=== PATIENT | male | born 1975 | race Caucasian/White ===

== ENCOUNTER 2023-12-26 15:40 | Inpatient (IN) | payer BC ==
[~2023-12-26] VITALS: Ht 182.9 cm; Wt 129.4 kg
[2024-01-27] MEDS ORDERED: Celecoxib 200 MG CAP PO SCH (11:30)
[2024-01-27] MEDS ORDERED: Acetaminophen 500 MG TAB PO SCH (11:30)
[2024-01-27] MEDS ORDERED: Gabapentin 100 MG CAP PO SCH (11:30)
[2024-01-28] VITALS (8 sets, daily range): BP systolic 110–142; BP diastolic 72–88; PULSE 64–83; TEMP 98.1–98.6
[2024-01-28] MEDS ORDERED: LR 1,000 ML IV SCH ×2 (06:00→15:00)
[2024-01-28 08:18] LABS: BASO # 0.1 K/mm3 (0.0-0.2); BASO % 0.9 % (0.0-2.0); EOS # 0.1 K/mm3 (0.0-0.7); EOS % 1.6 % (0.0-4.0); GRAN # 3.4 K/mm3 (1.4-6.5); GRAN % 48.6 % (42.2-75.2); HEMATOCRIT 45.2 % (42.0-52.0); HEMOGLOBIN 15.5 g/dl (13.5-18.0); LYMPH # 2.9 K/mm3 (1.2-3.4); LYMPH % 40.7 % (20.0-51.0); MEAN CELL VOLUME 86 fl (80.0-100.0); MEAN CORPUSCULAR HEMOGLOBIN 29 pg (27-31); MEAN CORPUSCULAR HGB CONC 34 g/dl (33.0-37.0); MONO # 0.5 K/mm3 (0.1-0.6); MONO % 7.5 % (1.7-9.3); PLATELET COUNT 206 K/mm3 (130-400); RED BLOOD COUNT 5.28 M/mm3 (4.20-5.60); REDCELL DISTRIBUTION WIDTH-CV 12.4 % (11.5-14.5)
[2024-01-28] MEDS ORDERED: metroNIDAZOLE 100 ML IV SCH (08:30)
[2024-01-28] MEDS ORDERED: CRESTOR40 MG PO (08:50)
[2024-01-28] MEDS ORDERED: ASPIRIN E.C. 8181 MG PO (08:50)
[2024-01-28 08:51] LABS: ALBUMIN 4.2 g/dL (3.5-5.0); BILIRUBIN,TOTAL 0.5 mg/dL (0.2-1.2); CALCIUM 9.4 mg/dL (8.4-10.2); CREATININE, serum 0.8 mg/dL (0.72-1.25); POTASSIUM 4.4 mEq/L (3.5-4.5); TOTAL PROTEIN 7.2 g/dl (6.2-8.1)
[2024-01-28] MEDS ORDERED: NORVASC2.5 MG PO (08:51)
[2024-01-28] MEDS ORDERED: FARXIGA10 PO (08:51)
[2024-01-28] MEDS ORDERED: GLUCOPHAGE1000 MG PO (08:51)
[2024-01-28] MEDS ORDERED: PLAVIX 75MG TAB75 MG PO (08:52)
[2024-01-28] MEDS ORDERED: NITROSTAT0.4 MG/TAB SL (08:53)
[2024-01-28] MEDS ORDERED: TOPROL XL 50MG50 MG PO (08:53)
[2024-01-28] MEDS ORDERED: MULTIPLE VITAMI1 CAP PO (08:54)
[2024-01-28] MEDS ORDERED: TRICOR 48MG48 MG PO (08:54)
[2024-01-28] MEDS ORDERED: fentaNYL 50 MCG/ML 2 ML VIAL ONE ×2 (09:15→11:02)
[2024-01-28] MEDS ORDERED: Midazolam 2 MG/2 ML VIAL ONE (09:15)
[2024-01-28] MEDS ORDERED: NS 100 ML IV ONE ×2 (09:17→09:18)
[2024-01-28] MEDS ORDERED: Rocuronium 50 MG/5 ML Multi-Dose VIAL ONE ×3 (09:17→11:27)
[2024-01-28] MEDS ORDERED: Lidocaine PF 2% (20 MG/ML) 5 ML VIAL ONE ×2 (09:17→10:46)
[2024-01-28] MEDS ORDERED: Phenylephrine 10 MG/ML VIAL ONE (09:17)
[2024-01-28] MEDS ORDERED: NS 20 ML IV ONE (09:17)
[2024-01-28] MEDS ORDERED: Ondansetron 4 MG/2 ML VIAL IV PRN ×2 (09:30→15:00)
[2024-01-28] MEDS ORDERED: fentaNYL 50 MCG/ML 1 ML SYRINGE/VIAL [PACU/SDC ONLY] IV PRN (09:30)
[2024-01-28] MEDS ORDERED: Scopolamine 1 MG Delivered 3-Day PATCH TD SCH (09:30)
[2024-01-28] MEDS ORDERED: HYDROmorphone 1 MG/1 ML SYRINGE [PACU/SDC ONLY] IV PRN (09:30)
[2024-01-28] MEDS ORDERED: hydrALAZINE 20 MG/ML 1 ML VIAL IV PRN (09:30)
[2024-01-28] MEDS ORDERED: Ketorolac 30 MG/ML VIAL ONE (10:16)
[2024-01-28] MEDS ORDERED: Ondansetron 4 MG/2 ML VIAL ONE (10:16)
[2024-01-28] MEDS ORDERED: NS 10 ML IV ONE (10:16)
[2024-01-28] MEDS ORDERED: NS 250 ML IV ONE ×2 (10:38)
[2024-01-28] MEDS ORDERED: NS 0 ML IV ONE (10:38)
[2024-01-28] MEDS ORDERED: HYDROmorphone 2 MG/1 ML VIAL ONE (11:44)
[2024-01-28] MEDS ORDERED: Indocyanine Green 25 MG KIT IV ONE (12:44)
[2024-01-28] MEDS ORDERED: Topical Skin Adhesive 1 EACH (1 ML) TOP ONE (14:03)
[2024-01-28] MEDS ORDERED: oxyCODONE 5 MG TAB PO PRN (15:00)
[2024-01-28] MEDS ORDERED: HYDROmorphone 0.5 MG/0.5 ML SYRINGE IV PRN (15:00)
[2024-01-28] MEDS ORDERED: Naloxone 0.4 MG/ML VIAL IV PRN (15:00)
[2024-01-28] MEDS ORDERED: Acetaminophen 500 MG TAB PO SCH (16:00)
--- NOTE | 2024-01-28 16:15 | NUR ---
PATIENT ARRIVED TO FLOOR FROM PACU AT 1615. VSS. PATIENT AWAKE IN BED W/ AT BEDSIDE. PATIENT REPORTING PAIN ABD, PT STATES " MORE OF A SORENESS OPPOSED TO PAIN". PATIET HAS NO OTHER NEEDS AT THIS TIME. CALL LIGHT IN REACH
[2024-01-28] MEDS ORDERED: ceFAZolin 2 G in Water For Injection,Sterile 20 ML IV SCH (19:00)
--- NOTE | 2024-01-28 20:00 | NUR ---
Assessment complete. A&Ox4. Denies pain/nausea/shortness of breath. Has been up ambulating in the hallway. Tolerating clear liquids. VS stable. Left hand IV with LR@75ml/hr infusing without difficulty. Will INT when current bag infuses. Lap sites x4-surgical glue-edges well approximated. Low transverse x1-surgical glue-edges well approximated. Plan of care discussed for this shift to include meds/pain control/calling for questions/concerns. Verbalizes understanding. Call light in reach. Will monitor.
[2024-01-28] MEDS ORDERED: metFORMIN 500 MG TAB PO SCH (21:00)
[2024-01-28] MEDS ORDERED: Atorvastatin 80 MG TAB PO SCH (21:00)
[2024-01-28] MEDS ORDERED: Rosuvastatin 40 MG **** subs to Atorvastatin 80 MG PO SCH (21:00)
[2024-01-28] MEDS ORDERED: Celecoxib 200 MG CAP PO SCH (21:00)
--- NOTE | 2024-01-28 21:50 | NUR ---
C/O pain to lower abdomen described as constant ache-rating pain 6/10 on pain scale. Oxycodone given per dr order. Will monitor.
[2024-01-29] VITALS (13 sets, daily range): BP systolic 126–153; BP diastolic 71–88; PULSE 62–92; TEMP 97.6–98.3
--- NOTE | 2024-01-29 | NUR ---
Patient called stating pain is 5/10 to lower abdomen described as constant ache. To early for oxycodone-dilaudid given per dr order. Will monitor.
--- NOTE | 2024-01-29 06:28 | NUR ---
Patient had an uneventful night. Received oxycodone for pain with good results. Did need one dose of dilaudid for breakthrough pain. Voiding without difficulty. Ambulated several times well. Has a small liquid stool. Tolerating PO. Denies current questions/concerns. Call light in reach. WIll monitor.
[2024-01-29 06:34] LABS: BASO % 0.2 % (0.0-2.0); EOS % 0.1 % (0.0-4.0); GRAN # 10.4 K/mm3 (1.4-6.5); GRAN % 78.6 % (42.2-75.2); HEMATOCRIT 41.1 % (42.0-52.0); HEMOGLOBIN 13.9 g/dl (13.5-18.0); LYMPH # 1.9 K/mm3 (1.2-3.4); LYMPH % 14.3 % (20.0-51.0); MEAN CELL VOLUME 86 fl (80.0-100.0); MEAN CORPUSCULAR HEMOGLOBIN 29 pg (27-31); MEAN CORPUSCULAR HGB CONC 34 g/dl (33.0-37.0); MEAN PLATELET VOLUME 10.2 fl (7.4-10.4); MONO # 0.8 K/mm3 (0.1-0.6); MONO % 6.3 % (1.7-9.3); PLATELET COUNT 218 K/mm3 (130-400); RED BLOOD COUNT 4.78 M/mm3 (4.20-5.60); REDCELL DISTRIBUTION WIDTH-CV 12.3 % (11.5-14.5)
[2024-01-29 06:59] LABS: CREATININE, serum 0.87 mg/dL (0.72-1.25); MAGNESIUM 1.7 mg/dL (1.6-2.6); PHOSPHOROUS 3.6 mg/dL (2.3-4.7); POTASSIUM 4.6 mEq/L (3.5-4.5)
[2024-01-29] MEDS ORDERED: FENOFIBRATE PO SCH (09:00)
[2024-01-29] MEDS ORDERED: Clopidogrel 75 MG TAB PO SCH (09:00)
[2024-01-29] MEDS ORDERED: Dapagliflozin 10 MG **** subs to Empagliflozin 10 MG PO SCH (09:00)
[2024-01-29] MEDS ORDERED: Fenofibrate 54 MG TABLET PO SCH (09:00)
[2024-01-29] MEDS ORDERED: amLODIPine 5 MG TAB PO SCH (09:00)
[2024-01-29] MEDS ORDERED: Atorvastatin 80 MG TAB PO SCH (09:00)
[2024-01-29] MEDS ORDERED: Multivitamin TAB PO SCH (09:00)
[2024-01-29] MEDS ORDERED: Empagliflozin 10 MG TAB PO SCH (09:00)
--- NOTE | 2024-01-29 10:51 | NUR ---
SHIFT ASSESSMENT COMPLETE. VSS. PATIENT UP WALKING THE HALLS OFTEN TODAY. DIET ADVANCED TO FULL LIQUIDS AND PATIENT TOLERATING WELL. PATIENT STATED PAIN THIS AM AT 5/10 IN ABD DECRIBES IT MORE MUSCLES BEING SORE OR REALLY TIGHT. PAIN MEDS GIVEN ORDERED W/ ALL MORNING MEDS. PATIENT HAS NO OTHER REQUEST AT THIS TIME. CALL LIGHT IN REACH.
--- NOTE | 2024-01-29 14:40 | NUR ---
Community Living Coach met with patient to discuss discharge planning. Patient lives in [place], [place] with his , Janae (ph#[phone]) [address] sees Dr. Card for primary care. Patient gets medications from [facility] with no difficulties. Patient is independent with ADLS and is employed at [employer]. Patient does not have DPOA-HC and was not interested in completing one at this time. Discharge Plan: Home
--- NOTE | 2024-01-29 20:00 | NUR ---
Assessment complete. A&Ox3. Denies nausea/shortness of breath. Rating pain 3/10 on pain scale-intermittent cramping-denies need for intervention. Has been ambulating in the hallway. States he feels as if he needs to have a BM but has not yet. +flatus. Hyperactive bowel sounds all four quadrants. Tolerating PO. INTd. INT to right hand DCd per request due to ddiscomfort. INT to left hand flushes well with no s/s of infiltration noted. Plan of care discussed for this shift to include continued ERAS protocol/pain control/calling for questions/concerns. Verbalizes understanding. Call light in reach. Will monitor.
[2024-01-30] VITALS (12 sets, daily range): BP systolic 130–155; BP diastolic 74–94; PULSE 67–100; TEMP 97.6–98.4
--- NOTE | 2024-01-30 03:17 | NUR ---
Patient up ambulating in the hallways. States he has the urge to have a BM and feels as if he is going to "mess himself" but as soon as he sits on toilet unable to go. Has been ambulating off and on this shift. Denies need for pain meds. Provided warm juice cocktail and is going to try to complete cup to see if able to go. Denies any other needs. Call light in reach. Will monitor.
--- NOTE | 2024-01-30 06:31 | NUR ---
Patient had an uneventful night. Ambulated several times in the hallways. Denied pain medications as well as scheduled tylenol. VS remained stable. States he feels as if he needs to have a BM but cant. Bowel sounds are hyperactive. Will monitor.
--- NOTE | 2024-01-30 06:47 | NUR ---
Bedside report given to JOCELYN Tirado.
--- NOTE | 2024-01-30 09:30 | NUR ---
SHIFT ASSESSMENT COMPLETED. VSS. PATIENT REPORTS HAVING A ROUGH NIGHT WITH GAS PAINS AND HAVING A FEELING OF HAVING TO HAVE A BM BUT NOT BEING ABLE. PATIENT REPORTS HE DID NOT SLEEP ALL NIGHT. CONTACTED DR. BABCOCK AND RECEIVED ORDER FOR STOOL SOFTNER SEE EMAR. ALL MORNING MEDS GIVEN ORDERED. PATIENT HAS NO TOHER NEEDS AT THIS TIME. CALL LIGHT IN REACH
[2024-01-30] MEDS ORDERED: Docusate Sodium 100 MG CAP PO SCH (09:41)
[2024-01-30] MEDS ORDERED: Polyethylene Glycol 3350 17 GM PDS PO PRN (09:45)
--- NOTE | 2024-01-30 10:30 | NUR ---
ROUNDED ON PATIENT STATES HE HAD A SMALL BM AND HAS SOME RELIEF BUT STILL FEELS PRESSURE TO HAVE A BM AND SOME CRAMPING. GAVE STOOL SOFTNER WILL REASSES.
--- NOTE | 2024-01-30 13:51 | NUR ---
CHECKED ON PATIENT STATES HE ATE BREAKFAST AND A FEW BITES IN THE CRAMPING STARTED BACK UP. ADVISED PATIENT WILL TRY SOME MIRLAX TO HELP WITH BM AND CHANGE DIET BACK TO FULL LIQUIDS TILL DR. BABCOCK COMES AND ROUNDS. PATIENT AGREED.
[2024-01-30 17:14] LABS: BASO % 0.4 % (0.0-2.0); EOS # 0.1 K/mm3 (0.0-0.7); EOS % 1.1 % (0.0-4.0); GRAN # 4.5 K/mm3 (1.4-6.5); GRAN % 47.9 % (42.2-75.2); HEMATOCRIT 42.6 % (42.0-52.0); HEMOGLOBIN 14.4 g/dl (13.5-18.0); LYMPH # 3.9 K/mm3 (1.2-3.4); LYMPH % 42.2 % (20.0-51.0); MEAN CELL VOLUME 88 fl (80.0-100.0); MEAN CORPUSCULAR HEMOGLOBIN 30 pg (27-31); MEAN CORPUSCULAR HGB CONC 34 g/dl (33.0-37.0); MEAN PLATELET VOLUME 10.2 fl (7.4-10.4); MONO # 0.7 K/mm3 (0.1-0.6); MONO % 7.8 % (1.7-9.3); PLATELET COUNT 195 K/mm3 (130-400); RED BLOOD COUNT 4.86 M/mm3 (4.20-5.60); REDCELL DISTRIBUTION WIDTH-CV 12.8 % (11.5-14.5)
[2024-01-30 17:35] LABS: ALBUMIN 3.9 g/dL (3.5-5.0); BILIRUBIN,TOTAL 0.5 mg/dL (0.2-1.2); CALCIUM 9.2 mg/dL (8.4-10.2); CREATININE, serum 0.73 mg/dL (0.72-1.25); POTASSIUM 3.9 mEq/L (3.5-4.5); TOTAL PROTEIN 6.6 g/dl (6.2-8.1)
[2024-01-31] VITALS (17 sets, daily range): BP systolic 113–144; BP diastolic 80–85; PULSE 71–113; TEMP 97.8–98.6
[2024-01-31] MEDS ORDERED: NS 1,000 ML IV ONE (02:30)
[2024-01-31 02:46] LABS: HEMOGLOBIN 13.2 g/dl (13.5-18.0); MEAN CELL VOLUME 87 fl (80.0-100.0); MEAN CORPUSCULAR HEMOGLOBIN 29 pg (27-31); MEAN CORPUSCULAR HGB CONC 34 g/dl (33.0-37.0); MEAN PLATELET VOLUME 10.3 fl (7.4-10.4); PLATELET COUNT 279 K/mm3 (130-400); RED BLOOD COUNT 4.51 M/mm3 (4.20-5.60); REDCELL DISTRIBUTION WIDTH-CV 12.5 % (11.5-14.5)
[2024-01-31 03:05] LABS: ALBUMIN 3.6 g/dL (3.5-5.0); BILIRUBIN,TOTAL 0.7 mg/dL (0.2-1.2); CALCIUM 8.6 mg/dL (8.4-10.2); CREATININE, serum 0.85 mg/dL (0.72-1.25); POTASSIUM 4.1 mEq/L (3.5-4.5); TOTAL PROTEIN 6.2 g/dl (6.2-8.1)
[2024-01-31] MEDS ORDERED: NS 50 ML IV SCH (03:08)
[2024-01-31] MEDS ORDERED: Iohexol 300 - 100 ML VIAL IV ONE (03:08)
[2024-01-31] MEDS ORDERED: Dextrose 50% Water 25 GM/50 ML SYRINGE IV PRN (03:15)
[2024-01-31] MEDS ORDERED: Dextrose (Glucose) 15 GM (4 x 3.75 GM) Chewable TABLET PACK PO PRN (03:15)
[2024-01-31] MEDS ORDERED: Glucagon 1 MG VIAL IM PRN (03:15)
[2024-01-31 03:46] LABS: LYMPHOCYTE 34 % (20.0-51.0); NEUTROPHILS 55 % (42.0-75.2); PLATELET ESTIMATE NORMAL (NORMAL)
--- NOTE | 2024-01-31 05:15 | NUR ---
ASSESSMENT COMPLETE FOR [facility]ER [employer]. pt COMPLAINED OF BLOODY STOOLS. AROUND 0110HRS. pt LEFT HIS 3RD BLOODY STOOL OF THE NIGHT IN THE TOILET FOR ME TO SEE. THE TOILET HAD A LARGE AMOUNT OF VERY DARK RED BLOODY BOWEL MOVEMENT. pt's VSS, AND AT THE TIME ASYMPTOMATIC. DR. BABCOCK CALLED. AM LABS (CBC; BMP). ORDERED. AROUND 0215HRS, THE AID CAME TO ME STATING THERE WAS BLOOD ALL OVER THE pt's FLOOR AND THAT THE pt's STATED HE HAD FAINTED AND HIT HIS HEAD. I RUSHED INTO pt's ROOM TO WITNESS HIM LEANING OVER TO SINK COUNTER, WITH SEVERAL CLOTS NEXT TO HIM ON THE FLOOR. pt WAS COMPLAINING OF FEELING DIZZY. SHORTLY AFTER I RUSHED IN, THE HOSPITALIST WALKED BY. THE HOSPITALIST, AUTOMATIC WHEEL LINE OPERATOR, AID AND MYSELF HELPED pt INTO A WHEEL CHAIR AND BACK INTO HIS BED. A NS BOLUS WAS ORDERED, STAT LABS AND A HEAD AND ABD CT. pt's Hgb DROPPED A LITTLE (14.4 TO 13.2), HOWEVER, HIS VITAL SIGNS REMAINED STABLE AND HIS CT'S CAME BACK UNREMARKABLE. WILL CONTINUE TO MONITOR. FALL PRECAUTIONS IN PLACE. BED ALARM ON. CALL LIGHT WITHIN REACH.
[2024-01-31 06:51] LABS: BASO % 0.4 % (0.0-2.0); EOS % 0.4 % (0.0-4.0); GRAN # 6.5 K/mm3 (1.4-6.5); GRAN % 64.7 % (42.2-75.2); HEMATOCRIT 37.1 % (42.0-52.0); HEMOGLOBIN 12.5 g/dl (13.5-18.0); LYMPH # 2.6 K/mm3 (1.2-3.4); LYMPH % 25.7 % (20.0-51.0); MEAN CELL VOLUME 87 fl (80.0-100.0); MEAN CORPUSCULAR HEMOGLOBIN 29 pg (27-31); MEAN CORPUSCULAR HGB CONC 34 g/dl (33.0-37.0); MEAN PLATELET VOLUME 10.5 fl (7.4-10.4); MONO # 0.8 K/mm3 (0.1-0.6); MONO % 7.5 % (1.7-9.3); PLATELET COUNT 247 K/mm3 (130-400); RED BLOOD COUNT 4.25 M/mm3 (4.20-5.60); REDCELL DISTRIBUTION WIDTH-CV 12.7 % (11.5-14.5)
[2024-01-31 06:54] LABS: CALCIUM 8.6 mg/dL (8.4-10.2); CREATININE, serum 0.76 mg/dL (0.72-1.25); POTASSIUM 4.4 mEq/L (3.5-4.5)
[2024-01-31 07:42] LABS: HEMATOCRIT 36.6 % (42.0-52.0); HEMOGLOBIN 12.4 g/dl (13.5-18.0)
[2024-01-31] MEDS ORDERED: Insulin Lispro (HumaLOG) SQ SCH (08:00)
[2024-01-31] MEDS ORDERED: LR 1,000 ML IV ONE (11:15)
--- NOTE | 2024-01-31 11:30 | NUR ---
MITA notified this nurse of patient almost having another syncopal episode at the sink. called orders obtained. IVF started, she will be in to see patient.
[2024-01-31] MEDS ORDERED: LR 1,000 ML IV SCH (11:45)
--- NOTE | 2024-01-31 12:01 | NUR ---
Patient resting in bed. Feeling much better after PROFESSOR SCULPTURE assisted with shower. Denies any further Bms this am. Denies nausea unless feeling dizzy. Patient made high fall risk this am and verbalized understanding of not getting up without help due to syncope. He is requesting a normal diet. denies nausea, but denies flatus as well. bowels active. low transverse incision with ecchomosis noted. His at bedside. Bruce cerda
--- NOTE | 2024-01-31 14:00 | NUR ---
notifed of patient again almost syncopal episode. Patient was up to the bathroom and become lightheaded/dizzy/unsteady/diaphoretic. This nurse present for episode. Once back in bed episode resolved. Lab called about unobtained lab order. Tele orders recieved. Urinal given to patient, advised him stay in bed for his safety until this resolves. He does refuse to wear hospital gown, but fall risk signage, yellow socks on and bed alarm has been used. at bedside
[2024-01-31 15:01] LABS: HEMOGLOBIN 11.1 g/dl (13.5-18.0)
[2024-01-31 15:02] LABS: HEMATOCRIT 32.5 % (42.0-52.0)
--- NOTE | 2024-01-31 17:34 | NUR ---
Patient resting in bed. MUSIC JOURNALIST assisted him to stool without syncope. He had a very small bloody stool per report. He reports headache resolved. Dinner ordered. IVF as ordered. Scheduled tylenol. Denies other needs at this time
[2024-02-01] VITALS (11 sets, daily range): BP systolic 120–148; BP diastolic 75–86; PULSE 72–85; TEMP 97.6–98.6
--- NOTE | 2024-02-01 07:00 | NUR ---
awake resting in bed watching TV, bedside shift report received from JOCELYN Steen
[2024-02-01 08:13] LABS: HEMATOCRIT 28.8 % (42.0-52.0); HEMOGLOBIN 9.7 g/dl (13.5-18.0)
--- NOTE | 2024-02-01 08:20 | NUR ---
sitting up in bed and ready to eat breakfast,
--- NOTE | 2024-02-01 08:45 | NUR ---
ambulating in gracia with physical therapy, denies dizziness or lightheadedness
--- NOTE | 2024-02-01 10:00 | NUR ---
up in recliner, full assessment completed, see interventions for further info, patient moves about and gets to bathroom, denies any soreness to buttocks or cocyx,
--- NOTE | 2024-02-01 11:50 | NUR ---
assisted up to bathroom and then ambulated out in gracia, denies dizziness when up, visiting with family
--- NOTE | 2024-02-01 16:52 | NUR ---
resting in chair watching TV, has ordered supper, denies needs
--- NOTE | 2024-02-01 17:00 | NUR ---
up and ambulated in gracia, steady gait and denies any dizziness, has been up and voided throughout the day, denies difficulty, has ordered supper
--- NOTE | 2024-02-01 18:59 | NUR ---
bedside shift report given to JOCELYN Steen
[2024-02-02 00:15] VITALS: BP_SYST 120
[2024-02-02 04:00] VITALS: BP 146/84; PULSE 89; TEMP 98
[2024-02-02 06:32] LABS: HEMATOCRIT 28.2 % (42.0-52.0); HEMOGLOBIN 9.5 g/dl (13.5-18.0)
[2024-02-02 08:11] VITALS: BP 144/91; PULSE 71; TEMP 98.5
[2024-02-02 09:55] VITALS: BP_SYST 144
--- NOTE | 2024-02-02 10:05 | NUR ---
Patient has done well this am. Tolerated breakfast, hopeful to dischage home today. He has ambulated halls this am and done well without dizzyness. Only request is at this time that tele be removed, orders to be obtained.
--- NOTE | 2024-02-02 10:55 | NUR ---
side door worker attended clinical rounding and was informed pt is a likely discharge today. No needs. Discharge Plan: home
[2024-02-02 11:06] VITALS: BP 147/91; PULSE 67; TEMP 98.3
[2024-02-02] MEDS ORDERED: ROXICODONE 55 MG/TAB PO (11:39)
--- NOTE | 2024-02-02 12:55 | NUR ---
Patient ready for discharge. Hospitalist & rounded and discharge orders obtained. All discharge paperwork reviewed with patient and his on speaker phone. Follow up appt scheduled and reviewed. Medication list reviewed with last dose taken. New medication Ferrous Sulfate.VitC.& oxycodone discussed. Importance of Holding Plavix until seen by cardiology. Int DC. Patient showered and dressed. Lunch prior to DC. Low fiber/heart healthy diet reviewed. Activity restictions discussed. Patient wheeled out with all belongings, his daughter taking him home.
[2024-02-02 12:58] VITALS: BP_SYST 147
== END 2024-02-02 13:15 | disposition home or self-care (01) | DRG 331 ==
LOC: SURG 01-28 07:37 → INPTSU 01-28 07:37 → SURG 01-28 10:00 → INPTSU 01-28 16:22 → SURG 01-28 16:23
PROVIDERS: Internal Medicine; Physician Assistant; Surgery; ADMIT Surgery
PROC: 8E0W4CZ Robotic Assisted Procedure of Trunk Region, Percutaneous Endoscopic Approach (ICD-10-PCS; 2024-01-28)
PROC: 0DTN4ZZ Resection of Sigmoid Colon, Percutaneous Endoscopic Approach (ICD-10-PCS; principal; 2024-01-28 10:00)
DX: K57.92 Diverticulitis of intestine, part unspecified, without perforation or abscess without bleeding (principal)
CPT/HCPCS: OP; A4314; A9270; A9284; J0688; J0690; J1170; J1650; J1815; J1836; J1885; J2250; J2371; J2405; J2598; J2704; J2795; J3010; J7030; J7050; J7120; Q9967